=== PATIENT | male | born 1950 | race Caucasian/White ===

== ENCOUNTER 2016-07-24 17:44 | Emergency (ER) | payer MEDICARE, BC ==
--- NOTE | ~2016-07-24 | CR173 ---
[facility] A Service of [facility] RADIOLOGY TEXT RESULTS PATIENT: ROSANA QUINTERO LOCATION: SED : 50 UNIT #: [id number] AGE: [address]: KAYDEN MONTOYA PA-C SEX: M ORDER DR: [id number] [place] [id number] E MR#: [id number] Acc #: [id number] NAME: ROSANA QUINTERO. : 1950 SEX: M STUDY DATE/TIME: 07/24/2016 17:29 UNIT: SED ROOM: STUDY DESCRIPTION: CR Knee 3 Views Rt Attending Physician: Kayden Montoya Pa-C Ordering Physician: Physician Non-Staff Primary Care Physician: Yannick Reeves M.D. MEDICAL IMAGING REPORT This report is preliminary unless electronic signature is present. EXAM Knee right 3 views HISTORY Pain and swelling since last night. No known injury. Symptoms anterior knee. FINDINGS AP lateral and sunrise views of the right knee are reviewed. There is prior pinning judaism from 2009. The patient has small to moderate joint effusion. There is tricompartmental osteoarthritis with narrowing of the medial greater than lateral tibial femoral joint space and narrowing of the patellofemoral joint space. Suspect some articular surface osteophyte formation versus an ossified intraarticular loose body at the anteromedial aspect of the medial tibial femoral compartment. If more information is needed, findings are best assessed further with an MRI. IMPRESSION 1. Small to moderate suprapatellar joint effusion. 2. Tricompartmental osteoarthritis with most prominent involvement at the patellofemoral joint in the medial tibial femoral compartment. This may include an intraarticular ossified loose body at the medial tibial femoral compartment versus an articular surface osteophyte. There is no acute fracture or bone destruction. If more information is needed, the patient is best assessed further with an MRI if a candidate. Please exclude any clinical concern for infection at this time. [facility] A Service of [facility] RADIOLOGY TEXT RESULTS PATIENT: ROSANA QUINTERO LOCATION: [facility] : 50 UNIT #: [id number] AGE: [address]: KAYDEN MONTOYA PA-C SEX: M ORDER DR: Dictated by... Janine Stein M.D. THIS IS AN ELECTRONICALLY VERIFIED REPORT Janine Stein M.D. at 07/25/2016 10:20 AM Eli TD: 07/25/2016 09:44 JOB #: [id number] MEDICAL IMAGING REPORT Page 1 of 1
[~2016-07-24 17:44] MED LIST: ALBUTEROL17 GM INH; AMARYL PO; AMITRIPTYLINE H25 MG PO; AMITRIPTYLINE H50 MG PO; ASPIRIN81 M1 PO; ASPIRIN81 MG PO; ATORVASTATIN CA40 MG PO; B-121000 MC1 PO; CARBIDOPA-LEVO1 EACH PO; CARDURA2 MG PO; CITRATE OF MAG300 ML PO; COLACE PO; DILAUDID4 MG PO; DOCUSATE SODIU100 MG PO; DOXAZOSIN MESYLA2 MG PO; DULOXETINE HCL60 MG PO; EPITOL PO; FISH OIL 1,001000 MG PO; FISH OIL500 M2 PO; GLUCOPHAGE500 MG PO; LISINOPRIL PO; METFORMIN HCL500 M1 PO; METFORMIN HCL500 M3 PO; MEVACOR40 MG PO; MIRALAX17 G1 PO; MIRALAX17 G2 PO; MOBIC15 MG PO; MOVANTIK25 MG PO; NICOTINE TRANSD21 MG EXT; PERCOCET 10/31 UDTA1 PO; PERCOCET5/325 PO; PRILOSEC PO; PRINIVIL40 MG PO; PROTONIX PO; SYMBICORT INH; TAMIFLU75 M1 PO; TEGRETOL PO; ZESTRIL40 MG PO; ZITHROMAX PO
== END 2016-07-24 19:05 | disposition home or self-care (01) ==
LOC: SED 17:44
DX: M17.11 Unilateral primary osteoarthritis, right knee (principal); E11.9 Type 2 diabetes mellitus without complications; I10 Essential (primary) hypertension; Z98.890 Other specified postprocedural states; F17.200 Nicotine dependence, unspecified, uncomplicated
CPT/HCPCS: 29530; 36415; 73562; 82947; 84550; 99283

== ENCOUNTER 2016-10-27 07:42 | Emergency (ER) | payer MEDICARE ==
--- NOTE | ~2016-10-27 | CR230 ---
[facility] A Service of [facility] & [facility] RADIOLOGY TEXT RESULTS PATIENT: ROSANA QUINTERO LOCATION: SED : 50 UNIT #: [id number] AGE: [address]: Keanu Ricks MD SEX: M ORDER DR: [id number] [place] [id number] E MR#: [id number] Acc #: [id number] NAME: ROSANA QUINTERO : 1950 SEX: M STUDY DATE/TIME: 10/27/2016 8:09 UNIT: SED ROOM: STUDY DESCRIPTION: CR Shoulder Min 2 View Rt Attending Physician: Keanu Ricks M.D. Ordering Physician: Keanu Ricks M.D. Primary Care Physician: Yannick Reeves M.D. MEDICAL IMAGING REPORT This report is preliminary unless electronic signature is present. EXAM Right shoulder 3 views, 10/27/2016 HISTORY Right shoulder pain and decreased range of motion for 3 days. No known injury. FINDINGS Three views of the right shoulder demonstrate no fracture. The bones are normally mineralized. The right glenohumeral and acromioclavicular joints are intact. Stable presumed bone island within the right humeral head compared with 02/22/2016. IMPRESSION No acute abnormality right shoulder. Dictated by... Raymundo Carroll M.D. THIS IS AN ELECTRONICALLY VERIFIED REPORT Raymundo Carroll M.D. at 10/28/2016 6:25 AM JOAQUINA/leatha TD: 10/27/2016 12:43 JOB #: [id number] MEDICAL IMAGING REPORT Page 1 of 1
== END 2016-10-27 09:21 | disposition home or self-care (01) ==
LOC: SED 07:42
DX: S46.911A Strain of unspecified muscle, fascia and tendon at shoulder and upper arm level, right arm, initial encounter (principal); K21.9 Gastro-esophageal reflux disease without esophagitis; F17.200 Nicotine dependence, unspecified, uncomplicated; Z98.890 Other specified postprocedural states; Z79.899 Other long term (current) drug therapy; X58.XXXA Exposure to other specified factors, initial encounter
CPT/HCPCS: 73030; 96372; 99283; J1885

== ENCOUNTER 2017-01-09 08:41 | Emergency (ER) | payer MEDICARE ==
[~2017-01-09] VITALS: Ht 180.3 cm; Wt 129.7 kg
--- NOTE | ~2017-01-09 | EKG ---
PATIENT: ROSANA QUINTERO UNIT #: [id number] Ventricular Rate: 94 BPM Atrial Rate: 94 BPM P-R Interval: 144 ms QRS Duration: 92 ms Q-T Interval: 300 ms QTC Calculation(Bezet): 375 ms P Hope: 19 degrees Calculated R Hope: 3 degrees Calculated T Hope: 43 degrees Diagnosis Line: Sinus rhythm with Premature supraventricular Diagnosis Line: complexes Diagnosis Line: Otherwise normal ECG Diagnosis Line: When compared with ECG of 27-JUN-2014 04:24, Diagnosis Line: Premature supraventricular complexes are now Diagnosis Line: Present Diagnosis Line: Confirmed by ABBEY DAMON MD ([id number]) on Diagnosis Line: 01/11/2017 10:49:20 AM INTERPRETING MD: NELSON VERMA
--- NOTE | ~2017-01-09 | CR72 ---
[facility] A Service of [facility] RADIOLOGY TEXT RESULTS PATIENT: ROSANA QUINTERO LOCATION: [facility] : 50 UNIT #: [id number] AGE: [address]: Jorge Luis Huston MD SEX: M ORDER DR: [id number] [facility] [address] [place], [place] [address] [id number] E MR#: [id number] Acc #: [id number] NAME: ROSANA QUINTERO : 1950 SEX: M STUDY DATE/TIME: 01/09/2017 9:36 UNIT: [facility] ROOM: STUDY DESCRIPTION: CR Chest Single View Portable Attending Physician: Jorge Luis Huston M.D. Ordering Physician: Jorge Luis Huston M.D. Primary Care Physician: Yannick Reeves M.D. MEDICAL IMAGING REPORT This report is preliminary unless electronic signature is present EXAM Portable chest 01/09 INDICATIONS Weakness, shortness of air, it started today. TECHNIQUE/COMPARISON AP portable chest is compared with 06/16/2013 FINDINGS Cardiac and mediastinal contours are normal. There is bilateral infrahilar atelectasis or infiltrate. No pneumothorax is seen. Pleural-based density in the left midlung may simply reflect a healed rib fracture. I cannot exclude a true pleural-based nodule. IMPRESSION Cardiomegaly with bilateral low lung infiltrate or atelectasis. Pleural-based density in the left midlung may reflect a healed rib fracture, I cannot exclude a true pleural-based nodule in this location. Dictated by... King Lopez Jr., M.D. THIS IS AN ELECTRONICALLY VERIFIED REPORT King Lopez Jr., M.D. at 01/10/2017 8:29 AM RLK/weston TD: 01/09/2017 16:40 JOB #: [id number] MEDICAL IMAGING REPORT Page 1 of 1 COPY
--- NOTE | ~2017-01-09 | CT71 ---
[facility] A Service of [facility] & [facility] RADIOLOGY TEXT RESULTS PATIENT: ROSANA QUINTERO LOCATION: [facility] : 50 UNIT #: [id number] AGE: [address]: Jorge Luis Huston MD SEX: M ORDER DR: [id number] [facility] [address] [place], [place] [address] [id number] E MR#: [id number] Acc #: [id number] NAME: ROSANA QUINTERO : 1950 SEX: M STUDY DATE/TIME: 01/09/2017 9:52 UNIT: [facility] ROOM: STUDY DESCRIPTION: CT Head Wo Contrast Attending Physician: Jorge Luis Huston M.D. Ordering Physician: Ed Doctor [id number] [facility] Primary Care Physician: Yannick Reeves M.D. MEDICAL IMAGING REPORT This report is preliminary unless electronic signature is present EXAM Head CT, 01/09 INDICATIONS Weakness and headache that started today. FINDINGS Axial images were obtained from the base to the vertex without contrast. No comparison. This CT exam was performed with one or more of the following radiation dose reduction techniques: Automatic exposure control, adjustment of mA and/or kV according to patient size, and iterative reconstruction. There is generalized atrophy. Chronic small vessel ischemic changes are present in the white matter. 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 Old lacunar infarcts are suspected in the quintin and probably in the basal ganglia on both sides, as well. There is a hyperdense lesion in the left frontal parenchyma measuring 1.6 x 1.1 cm, which is worrisome for a small acute hemorrhage. No mass effect. No other evidence of acute hemorrhage. Atherosclerotic calcifications are present in the carotid siphons. No skull fracture. IMPRESSION 1. 1.6 x 1.1 cm hyperdense lesion in the left frontal parenchyma is likely a small acute hemorrhage. No significant surrounding edema and no mass effect is seen. No other hemorrhage. Much less likely consideration would be a hyperdense mass. 2. 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 Findings have been discussed directly with Dr. Huston in the emergency room at the time of this dictation. [facility] A Service of [facility] & [facility] RADIOLOGY TEXT RESULTS PATIENT: ROSANA QUINTERO LOCATION: [facility] : 50 UNIT #: [id number] AGE: [address]: Jorge Luis Huston MD SEX: M ORDER DR: STAT * RESULT Dictated by... King Lopez Jr., M.D. THIS IS AN ELECTRONICALLY VERIFIED REPORT King Lopez Jr., M.D. at 01/09/2017 3:37 PM JESSY/rhiannon TD: 01/09/2017 10:22 JOB #: [id number] MEDICAL IMAGING REPORT Page 1 of 1 COPY
[2017-01-09 10:17] LABS: BASOPHIL% 0.2 % (0-2.5); HEMATOCRIT 31.7 % (38.0-50.0); HEMOGLOBIN 10.9 gm/dL (13.0-16.0); MEAN CELL VOLUME 81.5 FL (83-96); MEAN CORPUSCULAR HEMOGLOBIN 27.9 PG (28-34); MEAN CORPUSCULAR HGB CONC 34.2 g/dL (30-36); MEAN PLATELET VOLUME 6.4 FL (6.5-11.5); MONOCYTE# 1.8 X10e3 (0-1.0); MONOCYTE% 12.1 % (3.0-12.0); NEUTROPHIL# 12.1 X10e3 (1.5-7.1); NEUTROPHIL% 80.7 % (40-75); PLATELET COUNT 274 X10e3 (140-420); RED BLOOD COUNT 3.89 X10e (3.90-5.60); RED CELL DISTRIBUTION WIDTH 15.4 % (11.0-15.5)
[2017-01-09 10:18] LABS: DIFF IND NO
[2017-01-09 10:36] LABS: PROTHROMBIN TIME (PATIENT) 10.9 SECONDS (10.0-11.7)
[2017-01-09 10:40] LABS: URINE SOURCE CLEAN CATCH
[2017-01-09 10:41] LABS: ALBUMIN SERUM 2.9 g/dL (3.5-5.0); BUN/CREATININE RATIO 17.5; CALCIUM SERUM 9.6 mg/dL (8.4-10.2); CREATININE SERUM 1.6 mg/dL (0.6-1.4); GLOM FILT RATE Estimated 44.3 mL/min (>60); POTASSIUM 4.5 mmol/L (3.5-5.1); PROTEIN TOTAL SERUM 7.4 g/dL (6.0-8.3)
[2017-01-09 10:47] LABS: URINE APPEARANCE TURBID; URINE BLOOD 3+ (NEG); URINE COLOR DK YELLOW; URINE GLUCOSE 100 MG/DL (NEG); URINE KETONE NEG (NEG); URINE LEUKOCYTE ESTERASE 1+ (NEG); URINE NITRATE NEG (NEG); URINE PROTEIN 2+ (NEG); URINE SPECIFIC GRAVITY 1.026 (1.003-1.035)
[2017-01-09 10:49] LABS: CULTURE INDICATED? YES; URBCS1 AUWI 200-300 /[HPF] (0-2); URINE BACTERIA AUWI NEG (NEGATIVE); URINE SQUAMOUS EPITHELIAL CELL MOD /[HPF]; UWBCS1 AUWI 50-100 (0-5)
[2017-01-09 10:51] LABS: BILIRUBIN,TOTAL 0.1 mg/dL (0.2-2.0)
[2017-01-09 10:54] LABS: ALBUMIN SERUM 2.9 g/dL (3.5-5.0); PROTEIN TOTAL SERUM 7.4 g/dL (6.0-8.3)
[2017-01-09 10:55] LABS: BILIRUBIN, DIRECT 0.1 mg/dL (0.0-0.2); BILIRUBIN,TOTAL 0.1 mg/dL (0.2-2.0)
[2017-01-09 11:05] LABS: URINE BILIRUBIN NEG (NEG)
[2017-01-09 11:08] LABS: URINE MUCUS PRESENT
== END 2017-01-09 11:00 | disposition hospice, home (50) ==
LOC: CED 08:41
PROVIDERS: Emergency Medicine; Physician Assistant
DX: R53.1 Weakness (principal); S06.360A Traumatic hemorrhage of cerebrum, unspecified, without loss of consciousness, initial encounter; E11.9 Type 2 diabetes mellitus without complications; I10 Essential (primary) hypertension; E78.5 Hyperlipidemia, unspecified; F17.200 Nicotine dependence, unspecified, uncomplicated; Z79.899 Other long term (current) drug therapy
CPT/HCPCS: 36415; 70450; 71010; 80053; 80076; 81003; 82947; 83605; 85025; 85610; 87040; 87086; 93005; 94640; 96360; 99291; J0456; J0696